=== PATIENT | female | born 1995 | race American Indian/Alaskan Native ===

== ENCOUNTER 2021-01-22 08:22 | Emergency (ER) | payer MEDICAID, OTHER ==
[2021-01-22] MEDS ORDERED: oxyCODONE /ACETAMINOPHEN 5-325MG TAB PO ONE (09:35)
--- NOTE | 2021-01-22 10:05 | XRay Report ---
Right hand 3 views INDICATION: Right hand pain following injury IMPRESSION: No fracture or subluxation of the right hand is identified. Signer Name: Mihir Garcia MD Signed: 01/22/2021 10:01 AM Workstation Name: [id number]
--- NOTE | 2021-01-22 10:26 | Emergency Department Report ---
Upper Extremity - [facility] Chief Complaint: Extremity Injury, Upper Stated Complaint: BURNED RIGHT HAND @ WORK Time Seen by Provider: 01/22/21 09:33 Upper Extremity: Right Hand Occurred When: Today Other History: 25-year-old -British female presents to the emergency room for right hand injury today while at work. Patient states that she was getting something from the conveyor belt when her hand rolled over it. Patient comes in stating that her skin was peeled off and she has pain. She reports her pain to 10 out of 10. Last menstrual period was 12/28/2020. Patient is right- handed. Has no drug allergies has a history of asthma currently is on no medications. ED Review of Systems ROS: Stated complaint: BURNED RIGHT HAND @ WORK Other details as noted in HPI ED Past Medical Hx - Past Medical History Previous Medical History?: Yes Hx Asthma: Yes - Surgical History Past Surgical History?: No - Medications Home Medications: Home Medications Medication Instructions Recorded Confirmed Last Taken Type Acetaminophen/Codeine [Tylenol 1 tab PO Q6H PRN #12 tab 01/22/21 Unknown Rx /Codeine # 3 tab] Ibuprofen [Motrin 600 MG tab] 600 mg PO Q8H PRN #21 tablet 01/22/21 Unknown Rx Mupirocin [Bactroban 2%] 1 applic TP TID #1 tube 01/22/21 Unknown Rx Upper Extremity Exam - Exam General: Vital signs noted. No distress. Alert and acting appropriately. Head and Torso: No HEENT Abnormality, No Neck Tenderness, No Chest/Lungs Abnormality, No Abdominal Tenderness, No Back Tenderness Shoulder Exam: Yes Normal Range of Motion in Shoulder, No Shoulder Tenderness, No Clavicle Tenderness, No Shoulder Deformity, No AC Joint Tenderness Arm Exam: No Arm/Humerus Tenderness, No Arm Deformity Elbow: No Elbow Tenderness, No Normal Range of Motion in Elbow, No Elbow Deformity Forearm: No Forearm Tenderness, No Forearm Deformity, No Pain with Pronation, No Pain with Supination Hand: Yes Hand Tenderness, No Hand Deformity, No Digit Tenderness, No Normal ROM in Digit(s), No Digit(s) Deformity, No Tendon Dysfunction CMS Exam: Yes Broken Skin, Yes Normal Distal Pulses, Yes Normal Capillary Refill, Yes Normal Distal Sensation ED Course Vital Signs 01/22/21 08:28 Temperature 97.8 F Pulse Rate 88 Respiratory 17 Rate Blood Pressure 110/58 [Right] O2 Sat by Pulse 100 Oximetry ED Medical Decision Making - Radiology Data Radiology results: report reviewed [facility] [address] [place] [address] XRay Report Signed Patient: DANIEL BASS MR#: [id number] 35 : 1995 Acct:[id number] Age/Sex: 25 / F ADM Date: 01/22/21 Loc: ED Attending Dr: Ordering Physician: PUSHPA ALMANZAR Date of Service: 01/22/21 Procedure(s): XR hand 3+V RT Accession Number(s): [id number] cc: PUSHPA ALMANZAR Fluoro Time In Minutes: Right hand 3 views INDICATION: Right hand pain following injury IMPRESSION: No fracture or subluxation of the right hand is identified. Signer Name: Mihir Garcia MD Signed: 01/22/2021 10:01 AM Workstation Name: [id number] Transcribed By: BC Dictated By: Mihir Garcia MD Electronically Authenticated By: Mihir Garcia MD Signed Date/Time: 01/22/21 1001 DD/ 1000 TD/TT: Print Cancel - Medical Decision Making 25-year-old -British female presents to the emergency room for right hand injury today while at work. Patient states that she was getting something from the conveyor belt when her hand rolled over it. Patient comes in stating that her skin was peeled off and she has pain. She reports her pain to 10 out of 10. Last menstrual period was 12/28/2020. Patient is right-handed. Has no drug allergies has a history of asthma currently is on no medications. X-ray right hand shows no acute abnormalities or fractures. Wound was soaked with normal saline and Betadine Neosporin placed on wound with a clean nonadherent dressing. Patient is instructed to use triple antibiotics. Pain medication and follow-up with her primary care provider in the next 2 to 3 days. Critical care attestation.: If time is entered above; I have spent that time in minutes in the direct care of this critically ill patient, excluding procedure time. ED Disposition Clinical Impression: Abrasion of skin of right hand Disposition: DC- TO HOME OR SELFCARE Is pt being admited?: No Does the pt Need Aspirin: No Condition: Stable Instructions: Abrasion, [id number] Additional Instructions: Keep wound clean and dry. Place antibacterial ointment 3 times a day. Pain medication only as needed. If there is any signs of infection such as increased swelling redness purulent discharge or fever please return back to be reevaluated. I do recommend in the next 3 days to follow-up with a primary care provider to be sure that it is healing well. Prescriptions: Mupirocin [Bactroban 2%] 1 applic TP TID #1 tube Ibuprofen [Motrin 600 MG tab] 600 mg PO Q8H PRN #21 tablet PRN Reason: Pain Acetaminophen/Codeine [Tylenol /Codeine # 3 tab] 1 tab PO Q6H PRN #12 tab PRN Reason: Pain , Severe (7-10) Referrals: PRIMARY CARE,MD [Primary Care Provider] - 3-5 Days [facility] [Provider Group] - 3-5 Days Forms: Work/School Release Form(ED)
[2021-01-22] MEDS ORDERED: NEOMY 3.5 MG/BACIT 400 UNITS/POLY B 5000 UNITS/GM OINT PACKET TP ONE (11:29)
[2021-01-22 12:07] VITALS: BP 115/87
== END 2021-01-22 12:07 | disposition home or self-care (01) ==
LOC: ED 08:22
DX: S60.511A Abrasion of right hand, initial encounter (principal); J45.909 Unspecified asthma, uncomplicated; Z79.1 Long term (current) use of non-steroidal anti-inflammatories (NSAID); Z79.899 Other long term (current) drug therapy; X58.XXXA Exposure to other specified factors, initial encounter; Y93.89 Activity, other specified; Y92.89 Other specified places as the place of occurrence of the external cause; Y99.0 Civilian activity done for income or pay
CPT/HCPCS: 73130; 99283; A6250